=== PATIENT | female | born 1970 | race Caucasian/White ===

== ENCOUNTER 2021-08-05 10:25 | Outpatient (REF) | payer BC, OTHER, SELFPAY ==
--- NOTE | ~2021-08-05 | XR_ITS ---
EXAMINATION: XR HAND, LEFT CLINICAL INFORMATION: Pain COMPARISON: None TECHNIQUE: PA view of the hand and oblique and lateral views of the first digit FINDINGS: No acute fracture or dislocation. Chronic mildly displaced ulnar styloid avulsion fracture. Linear calcification along the radial aspect of the first proximal phalangeal base at the metacarpophalangeal joint. Rounded calcification along the radial aspect of the first distal metacarpal head. Mild degenerative changes of the first CMC joint. XR/XR hand LT min 3V IMPRESSION: * No acute fracture or dislocation. * There are calcifications along the radial aspect of the first metacarpophalangeal joint which may represent dystrophic and/or heterotopic ossification setting of previous joint capsular trauma.
== END 2021-08-05 10:26 | disposition home or self-care (01) ==
LOC: HO.HOSX 10:25
PROVIDERS: PCP Pediatrics; Visit Provider Physician Assistant
DX: M79.645 Pain in left finger(s) (principal); M79.642 Pain in left hand
CPT/HCPCS: 73130

== ENCOUNTER → 2021-09-03 09:38 | Outpatient (BNVA) | payer BC, SELFPAY | PROVIDERS: PCP Pediatrics; Visit Provider Orthopaedic Surgery ==

== ENCOUNTER 2021-10-29 09:15 | Outpatient (REF) | payer BC, SELFPAY | END 2021-10-29 09:16 | disposition home or self-care (01) | LOC: HO.HOSX 09:15 | PROVIDERS: Visit Provider Orthopaedic Surgery | DX: Z13.89 Encounter for screening for other disorder (principal) ==

== ENCOUNTER 2021-11-19 13:30 | Outpatient (RCR) | payer BC, SELFPAY ==
--- NOTE | 2021-11-19 15:04 | MHC.OT.DC ---
[address] [phone] F: [phone] Occupational Therapy Discharge Note Provider: Duane Worthy PA-C Diagnosis: Left thumb pain Date of Surgery: Date of Evaluation: 08/19/21 Date of Discharge: 11/19/21 Treatments to Date: 16 Cancellations to Date: No Shows to Date: Discharge Status: Independent with HEP Recommend MD Follow-up Discharge Summary: Little change in pain at thumb MP jt primarily with combined IP/MPj flexion, gripping... MP jt laxity noted, and pt continued tendency to pinch and pressure medial thumb. No change in hand strength or thenar ms atrophy. Pt is indep with her HEP for strengthening and attempting to implement jt protection. Some temporary dec in pain after US tx. No significant benefit from OT at this time. Electronically Signed By: Elayne Jung OT CHT CLT Reviewed/agree with student documentation: N/A Therapist: Please Sign and return to therapist, thank you for your referral.
== END 2021-11-19 15:05 | disposition home or self-care (01) ==
LOC: HO.OT 13:30
PROVIDERS: PCP Pediatrics; Visit Provider Physician Assistant
DX: M79.645 Pain in left finger(s) (principal)
CPT/HCPCS: 97033; 97035; 97110; 97140; 97166; 97760

== ENCOUNTER 2021-11-20 08:38 | Outpatient (REF) | payer BC, SELFPAY ==
--- NOTE | ~2021-11-20 | XR_ITS ---
EXAMINATION: XR HAND, LEFT CLINICAL INFORMATION: Pain. COMPARISON: None TECHNIQUE: 4 views of the left hand. FINDINGS: There is loss of PIP and DIP joint space without periarticular spurring. No visible acute fracture, dislocation or subluxation seen. There is mild osteopenia. No abnormal soft tissue swelling seen. XR/XR hand LT min 3V IMPRESSION: Mild early degenerative changes PIP and DIP joints without fracture, spurring or subluxation. There is mild osteopenia.
== END 2021-11-20 08:39 | disposition home or self-care (01) ==
LOC: HO.HOSX 08:38
PROVIDERS: Visit Provider Orthopaedic Surgery
DX: M79.642 Pain in left hand (principal); M79.645 Pain in left finger(s); Z88.8 Allergy status to other drugs, medicaments and biological substances
CPT/HCPCS: 73130

== ENCOUNTER 2021-12-20 16:54 | Outpatient (REF) | payer BC, SELFPAY ==
--- NOTE | ~2021-12-20 | MR_ITS ---
EXAMINATION: MRI HAND WITHOUT AND WITH CONTRAST, LEFT CLINICAL INFORMATION: Left thumb mass. Pain. COMPARISON: Left hand radiographs dated 11/20/2021. TECHNIQUE: Multisequence MR images of the left hand were obtained before and after the IV administration of 6 mL Gadavist contrast on a high-field strength scanner. FINDINGS: BONE: Articular cartilage thinning with mild subchondral cystic change at the 1st metacarpophalangeal joint. No evidence of acute osseous injury. No concerning lytic or blastic osseous lesion. No fracture or dislocation. No abnormal marrow enhancement. MUSCLES/TENDONS: The visualized flexor and extensor tendons are intact. No evidence of acute muscle or tendon injury. No abnormal enhancement. LIGAMENTS: The collateral ligaments are grossly intact. SOFT TISSUES: Small 1st metacarpophalangeal joint effusion. No abnormal soft tissue mass, fluid collection, or enhancement. MR/MR hand LT wo/w con IMPRESSION: 1. Mild osteoarthritis with subchondral cystic change and a small joint effusion at the 1st metacarpophalangeal joint. Mild enhancement of the joint fluid on postcontrast images which may be related to degenerative arthritis. An infectious or inflammatory arthritis could also be considered in the appropriate clinical setting; however, are thought less likely due to the lack of adjacent marrow edema. 2. No acute tendon or ligamentous injury. 3. No abnormal soft tissue mass, fluid collection, or enhancement.
== END 2021-12-20 16:55 | disposition home or self-care (01) ==
LOC: HO.MRI 16:54
PROVIDERS: PCP Pediatrics; Visit Provider Orthopaedic Surgery
DX: M79.645 Pain in left finger(s) (principal)
CPT/HCPCS: 73220; A9585

== ENCOUNTER → 2022-01-07 08:57 | Outpatient (BNVA) | payer BC, SELFPAY | PROVIDERS: PCP Pediatrics; Visit Provider Orthopaedic Surgery | DX: Z13.89 Encounter for screening for other disorder (principal) ==